=== PATIENT | female | born 1950 | race Caucasian/White ===

== ENCOUNTER → 2017-08-02 | Outpatient (CLI) | payer OTHER ==
[~2017-08-02] MED LIST: ASPI81TA28 PO; CALCTAB7 PO; CHOL100010 PO; CRG40 PO; OMEP10CA2 PO; SIMV20TA2 PO; SNM/25100 PO
--- NOTE | 2017-08-03 07:53 | MAMMOGRAPHY REPORT ---
BILATERAL DIGITAL SCREENING MAMMOGRAM WITH CAD: 08/02/2017 CLINICAL HISTORY: Routine screening. Patient has no complaints. TECHNIQUE: Bilateral CC and MLO views were obtained. Current study was also evaluated with a Compute r Aided Detection (CAD) system. COMPARISON: Comparison is made to exams dated: 07/29/2016 mammogram, 07/08/2015 mammogram, 4 mammogram, 07/04/2013 mammogram, 06/28/2012 mammogram, and 06/05/2011 mammogram - [facility]. BREAST COMPOSITION: There are scattered areas of fibroglandular density in both breasts. FINDINGS: There are numerous benign rim calcifications scattered in both breasts. However, there is a possible cluster of faint punctate microcalcifications in the posterior retroareolar right breast f or which additional spot magnification views are recommended. A 4 mm low-density circumscribed mass in the lower inner left breast appears stable on prior mammogra ms dating back to at least 05/18/2008, therefore likely benign. No other suspicious mass, architectu ral distortion or cluster of microcalcifications is seen. IMPRESSION: ACR BI-RADS CATEGORY 0: INCOMPLETE EVALUATION: NEED ADDITIONAL IMAGING EVALUATION The possible cluster of faint punctate microcalcifications in the right posterior breast needs additi onal evaluation. The patient will be called to schedule an appointment. Approximately 10% of breast cancers are not detected with mammography. A negative mammographic report should not delay biopsy if a clinically suggestive mass is present. Lalitha Hood M.D. ay/:08/02/2017 15:51:10 Marketing Support Coordinator: Natasha Hobbs RT(R)(M), [facility] letter sent: Addl Imaging 0 BI-RADS Code: ACR BI-RADS Category 0: Incomplete Evaluation: Need Additional Imaging Evaluation
== END | disposition home or self-care (01) ==
LOC: C.MAMM 11:08
PROVIDERS: ATTEND Physician Assistant
DX: Z12.31 Encounter for screening mammogram for malignant neoplasm of breast (principal); R92.8 Other abnormal and inconclusive findings on diagnostic imaging of breast

== ENCOUNTER → 2017-08-05 | Outpatient (CLI) | payer OTHER ==
--- NOTE | 2017-08-05 14:35 | MAMMOGRAPHY REPORT ---
UNILATERAL RIGHT DIGITAL DIAGNOSTIC MAMMOGRAM: 08/05/2017 CLINICAL HISTORY: Callback from screening mammogram for right breast calcifications. TECHNIQUE: Spot magnification right CC and ML views were obtained. COMPARISON: Comparison is made to exams dated: 08/02/2017 mammogram, 07/29/2016 mammogram, 5 mammogram, 07/05/2014 mammogram, 06/28/2012 mammogram, and 06/05/2011 mammogram - [facility]. BREAST COMPOSITION: There are scattered areas of fibroglandular density in the right breast. FINDINGS: Spot magnification views of the right breast demonstrate a small 3 mm cluster of faint punc dunaway calcifications in the right slightly lateral breast at approximately 9:00 posteriorly. When com pared to prior exams, the calcifications are likely not significantly changed compared to the 2009 an d 2007 exams, although there are technical differences which make it difficult to make an accurate co mparison. The calcifications are probably benign given the probable long-term stability. Recommend follow-up in 6 months to ensure stability. Other scattered benign rim calcified oil cysts are noted on the spot magnification views. IMPRESSION: ACR-BI-RADS CATEGORY 3: PROBABLY BENIGN Small 3 mm cluster of faint punctate calcifications in the right 9:00 breast is likely stable dating back to the 2007 exam and is therefore probably benign. Recommend follow-up diagnostic mammograms of the right breast in 6 months to ensure stability on spot magnification views. The patient has been verbally notified of the results. Approximately 10% of breast cancers are not detected with mammography. A negative mammographic report should not delay biopsy if a clinically suggestive mass is present. Tamiko Rain M.D. /:08/05/2017 09:35:43 Client Services Vice President: Wilma Dunlap, [facility] letter sent: Follow Up Recommended 3 BI-RADS Code: ACR-BI-RADS Category 3: Probably Benign
== END | disposition home or self-care (01) ==
LOC: C.MAMM 09:06
PROVIDERS: ATTEND Physician Assistant
DX: R92.1 Mammographic calcification found on diagnostic imaging of breast (principal)

== ENCOUNTER 2025-07-23 10:22 | Observation (INO) ==
--- NOTE | 2025-07-23 10:48 | Emergency Department Note ---
Impression & Plan Stroke-like symptom, Tobacco dependence, Encounter for smoking cessation counseling, Hypokalemia, Hypoglycemia ED Provider Note NAME: SANTI PARRA AGE: 74 SEX: F : 1950 ARRIVES VIA: Walk-In INFORMANT: Patient, ED PROVIDER(S): Panchito Huizar MD CHIEF COMPLAINT: Weakness, numbness MEDICAL DECISION MAKING: Patient presents with above which sounds like stuttering stroke or TIA related symptoms. IV was established and blood work is obtained along CT head CT angiography head and neck. Currently asymptomatic with an NIH of 0. Patient did take a baby aspirin as well as her statin medication this morning. Patient's blood work with a normal white count hemoglobin and platelet count. The patient's kidney function unremarkable mild hypokalemia noted at 2.8. Sugar 65. I did ask nursing to give the patient some juice. Urinalysis shows blood but no signs of infection. Patient CT head and CT angiography of the head and neck show some high-grade stenosis of the left vertebral artery as well as stenosis of the proximal right ICA. I did inform the patient of the findings. I did speak with Dr. Barrientos with neurology through [facility] who recommended a Plavix load of 300 mg echo lipid panel MRI brain and to increase her rosuvastatin to 40 mg. I did speak with Dr. Quinn and the patient was admitted to the medicine service. I counseled patient on smoking cessation for 3 minutes. Treatment options discussed and resources provided. Patient was receptive. Discussion w/ other healthcare providers: Dr. Floyd Salas neurology Dr. Quinn inpatient medicine service Prior /Outside records reviewed: None Differential diagnosis: TIA, stroke, infection, dehydration, metabolic abnormality, hypo/hyperglycemia, electrolyte imbalance, anemia, UTI, pneumonia, thyroid dysfunction among others were considered. Diagnostics, as interpreted by me: ECG: Normal sinus rhythm, rate of 61, normal intervals, normal axis no ST elevations no obvious STEMI. Cardiac monitoring: An order was placed for continuous cardiac monitoring. The monitor shows a rate of 62 with sinus rhythm. Patient was placed on pulse oximetry Medical decision rules: None Imaging studies: I informally interpreted the patient's CT head does not show obvious ICH with formal report to follow. HPI: Patient presents due to concern for numbness which has progressed to now include right arm and right leg weakness. This happened most recent this morning and occurred for about 5 minutes in duration. The patient states that she was seen as an outpatient that this began back in February after an increase in her blood pressure medication and was not sure as well not this was attributed to that. She states that that initially just involve facial numbness on the right side. She states that recently the last couple of weeks she has noticed the weakness in the arm and the leg. Patient does take a baby aspirin and statin medication. She denies any prior history of stroke or mini stroke. She is a smoker. She is accompanied by her sister. PAST MEDICAL HISTORY: See Below PAST SURGICAL HISTORY: See Below SOCIAL HISTORY: See Below HOME MEDICATIONS: See Below ALLERGIES: See Below VITALS: See Below PHYSICAL EXAMINATION: GENERAL: NAD, non-toxic. Wearing glasses. EYE EXAM: Normal conjunctiva. PERRL, no anisocoria and EOM's grossly intact w/o pain. OROPHARYNX: Moist mucus membranes, grossly normal dentition. NECK: Trachea midline, no stridor. LUNGS: Clear to auscultation. Normal chest wall mechanics. HEART: NSR, no MRG. ABDOMEN: Abdomen soft, non-tender, no masses, no rebound or guarding. BACK: No CVA TTP. SKIN: No rashes and no bruising. UPPER EXTREMITIES: Upper extremities are grossly normal. LOWER EXTREMITIES: Grossly normal, no edema. NEURO EXAM: Awake and alert, follows commands, no obvious facial asymmetry, normal speech, moves all 4 extremities. Good [id number], no drift and no sensory deficits. 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 History of orthopedic surgery GERD (gastroesophageal reflux disease) Hyperlipidemia Restless leg syndrome Social History Smoking Status: Current every day smoker Tobacco Type: Cigarettes Preferred Language: Tunisian marital status: current occupational status: retired Feels Safe at Home: Yes Allergies Allergies Allergy/AdvReac Type Severity Reaction Status Date / Time No Known Allergies Allergy Mild Verified 07/23/25 13:55 Home Meds Home Medications Medication Instructions Recorded Confirmed aspirin 81 mg tablet,delayed 81 mg PO DAILY 03/09/20 07/23/25 release (Aspir-) calcium 600 mg (as carbonate)-vit 1 tab PO QAM 03/09/20 07/23/25 D3 20 mcg (800 unit) chewable tablet (Caltrate plus D) carbidopa 25 mg-levodopa 100 mg 1 tab PO HS 03/09/20 07/23/25 tablet hydrochlorothiazide 12.5 mg tablet 0 mg PO QAM 03/09/20 07/23/25 nadolol 40 mg tablet 40 mg PO HS 03/09/20 07/23/25 omeprazole 20 mg capsule,delayed 20 mg PO QAM 03/09/20 07/23/25 release valsartan 80 mg tablet 0 mg PO QAM 03/09/20 07/23/25 vitamin E 268 mg (400 unit) capsule 400 unit PO QAM 03/09/20 07/23/25 acetaminophen 500 mg tablet 500 mg PO Q6H PRN Pain 07/23/25 07/23/25 loratadine 10 mg tablet 10 mg PO DAILY PRN Allergy Symptoms 07/23/25 07/23/25 rosuvastatin 40 mg tablet 40 mg PO QPM 07/23/25 07/23/25 valsartan 160 0 tab PO DAILY 07/23/25 07/23/25 mg-hydrochlorothiazide 12.5 mg tablet Results & Data (ED) Vital Signs Vital Signs - 24 hr 07/23/25 10:24 07/23/25 10:42 07/23/25 10:43 Temperature 36.2 C L Temperature Source Temporal Artery Scan Pulse Rate 66 55 L Pulse Rate [Apical] Pulse Rate from SpO2 Sensor Respiratory Rate 14 21 Respiratory Effort / Characteristics Respiratory Depth Respiratory Pattern Blood Pressure 214/75 H 194/84 H 194/84 H Blood Pressure [Left Arm] Blood Pressure Mean 121 120 135 Blood Pressure Mean [Left Arm] Blood Pressure Position [Left Arm] Pulse Oximetry 96 Oxygen Delivery Method Room Air Sepsis New/Unexplained Change in Mental Status No Sepsis Action Taken by Nursing No Action Required 07/23/25 11:00 07/23/25 11:23 07/23/25 11:30 Temperature Temperature Source Pulse Rate 64 55 L 51 L Pulse Rate [Apical] Pulse Rate from SpO2 Sensor 63 52 L Respiratory Rate 13 15 Respiratory Effort / Characteristics Respiratory Depth Respiratory Pattern Blood Pressure 163/71 H 176/77 H Blood Pressure [Left Arm] Blood Pressure Mean 101 110 Blood Pressure Mean [Left Arm] Blood Pressure Position [Left Arm] Pulse Oximetry 98 100 Oxygen Delivery Method Sepsis New/Unexplained Change in Mental Status Sepsis Action Taken by Nursing 07/23/25 12:06 07/23/25 12:36 07/23/25 13:00 Temperature Temperature Source Pulse Rate 49 L 53 L 46 L Pulse Rate [Apical] Pulse Rate from SpO2 Sensor 52 L 47 L Respiratory Rate 14 20 14 Respiratory Effort / Characteristics Respiratory Depth Respiratory Pattern Blood Pressure 184/54 H 179/67 H Blood Pressure [Left Arm] Blood Pressure Mean 97 104 Blood Pressure Mean [Left Arm] Blood Pressure Position [Left Arm] Pulse Oximetry 96 99 Oxygen Delivery Method Sepsis New/Unexplained Change in Mental Status Sepsis Action Taken by Nursing 07/23/25 13:30 07/23/25 14:00 07/23/25 14:30 Temperature Temperature Source Pulse Rate 53 L 53 L 50 L Pulse Rate [Apical] Pulse Rate from SpO2 Sensor 53 L 53 L 51 L Respiratory Rate 20 19 18 Respiratory Effort / Characteristics Respiratory Depth Respiratory Pattern Blood Pressure 181/63 H 193/70 H 160/85 H Blood Pressure [Left Arm] Blood Pressure Mean 102 111 110 Blood Pressure Mean [Left Arm] Blood Pressure Position [Left Arm] Pulse Oximetry 97 98 98 Oxygen Delivery Method Sepsis New/Unexplained Change in Mental Status Sepsis Action Taken by Nursing 07/23/25 15:00 07/23/25 16:21 07/23/25 17:03 Temperature 36.7 C Temperature Source Oral Pulse Rate Pulse Rate [Apical] 54 L 63 55 L Pulse Rate from SpO2 Sensor Respiratory Rate 20 12 16 Respiratory Effort / Characteristics Non-Labored Spontaneous Non-Labored Non-Labored Spontaneous Respiratory Depth Normal Normal Normal Respiratory Pattern Regular Regular Regular Blood Pressure Blood Pressure [Left Arm] 189/76 H 189/82 H 188/72 H Blood Pressure Mean Blood Pressure Mean [Left Arm] 113 117 110 Blood Pressure Position [Left Arm] Semi-fowlers Semi-fowlers Semi-fowlers Pulse Oximetry 98 97 97 Oxygen Delivery Method Room Air Room Air Room Air Sepsis New/Unexplained Change in Mental Status Sepsis Action Taken by Nursing 07/23/25 17:50 Temperature Temperature Source Pulse Rate Pulse Rate [Apical] 71 Pulse Rate from SpO2 Sensor Respiratory Rate 19 Respiratory Effort / Characteristics Respiratory Depth Respiratory Pattern Blood Pressure Blood Pressure [Left Arm] 188/72 H Blood Pressure Mean Blood Pressure Mean [Left Arm] 110 Blood Pressure Position [Left Arm] Pulse Oximetry 97 Oxygen Delivery Method Sepsis New/Unexplained Change in Mental Status Sepsis Action Taken by Custodial Medications Current Medication List: was personally reviewed by me Laboratory Data Attestation: I reviewed the patient's lab results. 07/23/25 10:49 07/23/25 10:49 Lab Results 07/23/25 07/23/25 07/23/25 Range/Units 10:49 12:05 12:12 WBC 9.31 (4.8-10.8) K/ul RBC 4.78 (4.20-5.40) M/uL Hgb 15.2 (12.0-16.0) g/dL Hct 45.4 (37.0-47.0) % MCV 95.0 (80.0-100.0) fL MCH 31.8 (25.0-34.0) pg MCHC 33.5 (32.0-36.0) g/dL RDW Std Deviation 50.0 H (36.4-46.3) fL RDW Coeff of Fermin 14.2 (11.5-14.5) % Plt Count 198 (130-400) K/uL MPV 12.1 (9.4-12.4) fL Immature Gran % (Auto) 0.3 % Neut % (Auto) 61.1 % Lymph % (Auto) 29.6 % Webster % (Auto) 7.6 % Eos % (Auto) 1.1 % Baso % (Auto) 0.3 % Neut # (Auto) 5.68 (1.40-6.50) K/uL Lymph # (Auto) 2.76 (1.20-3.40) K/uL Webster # (Auto) 0.71 H (0.11-0.59) K/uL Eos # (Auto) 0.10 (0.00-0.50) K/uL Baso # (Auto) 0.03 (0.00-0.20) K/uL Immature Gran # (Auto) 0.03 (0.01-0.20) K/uL PT 11.4 (9.0-12.0) Seconds INR 1.1 (0.9-1.1) APTT 23 (21-31) Seconds PTT Ratio 0.8 Sodium 140 (136-145) mmol/L Potassium 2.8 L (3.5-5.1) mmol/L Chloride 100 (98-107) mmol/L Carbon Dioxide 33 H (21-32) mmol/L Anion Gap 7 (3-11) BUN 21 (6-23) mg/dl Creatinine 0.64 (0.6-1.2) mg/dl Est Cr Clr Drug Dosing 71.1 ml/min eGFR 92.10 BUN/Creatinine Ratio 32.8 H (10-20) Glucose 65 L (70-99(Fasting)) mg/dl POC Glucose 67 L* (70-99) mg/dl Calcium 10.2 (8.6-10.3) mg/dl Magnesium 1.9 (1.7-2.4) mg/dl Total Bilirubin 1.5 H (0.2-1.0) mg/dl AST 24 (13-39) U/L ALT 24 (7-52) U/L Alkaline Phosphatase 63 (34-104) U/L Troponin I High Sens 6.9 (0-14) pg/ml Total Protein 7.8 (6.0-8.3) gm/dl Albumin 4.2 (3.4-5.0) gm/dl Globulin 3.6 (2.5-4.0) gm/dl Albumin/Globulin Ratio 1.2 (0.9-2) Urine Color Yellow Urine Appearance Clear (Clear) Urine pH 6.5 (4.5-7.5) Ur Specific [place] 1.010 (1.000-1.030) Urine Protein 1+ H (Negative) Urine Glucose (UA) Negative (Negative) Urine Ketones Negative (Negative) Urine Blood Trace H (Negative) Urine Nitrite Negative (Negative) Urine Bilirubin Negative (Negative) Urine Urobilinogen Negative (Negative) Ur Leukocyte Esterase Negative (Negative) Urine WBC (Auto) 0-5 (0-5) /hpf Urine RBC (Auto) 0-2 (0-2) /hpf U Hyaline Cast (Auto) 0-2 (0-2) /lpf U Epithel Cells (Auto) 0-2 (0-2) /hpf Urine Bacteria (Auto) None Seen (None Seen) Urine Comment 07/23/25 Range/Units 13:56 WBC (4.8-10.8) K/ul RBC (4.20-5.40) M/uL Hgb (12.0-16.0) g/dL Hct (37.0-47.0) % MCV (80.0-100.0) fL MCH (25.0-34.0) pg MCHC (32.0-36.0) g/dL RDW Std Deviation (36.4-46.3) fL RDW Coeff of Fermin (11.5-14.5) % Plt Count (130-400) K/uL MPV (9.4-12.4) fL Immature Gran % (Auto) % Neut % (Auto) % Lymph % (Auto) % Webster % (Auto) % Eos % (Auto) % Baso % (Auto) % Neut # (Auto) (1.40-6.50) K/uL Lymph # (Auto) (1.20-3.40) K/uL Webster # (Auto) (0.11-0.59) K/uL Eos # (Auto) (0.00-0.50) K/uL Baso # (Auto) (0.00-0.20) K/uL Immature Gran # (Auto) (0.01-0.20) K/uL PT (9.0-12.0) Seconds INR (0.9-1.1) APTT (21-31) Seconds PTT Ratio Sodium (136-145) mmol/L Potassium (3.5-5.1) mmol/L Chloride (98-107) mmol/L Carbon Dioxide (21-32) mmol/L Anion Gap (3-11) BUN (6-23) mg/dl Creatinine (0.6-1.2) mg/dl Est Cr Clr Drug Dosing ml/min eGFR BUN/Creatinine Ratio (10-20) Glucose (70-99(Fasting)) mg/dl POC Glucose 84 (70-99) mg/dl Calcium (8.6-10.3) mg/dl Magnesium (1.7-2.4) mg/dl Total Bilirubin (0.2-1.0) mg/dl AST (13-39) U/L ALT (7-52) U/L Alkaline Phosphatase (34-104) U/L Troponin I High Sens (0-14) pg/ml Total Protein (6.0-8.3) gm/dl Albumin (3.4-5.0) gm/dl Globulin (2.5-4.0) gm/dl Albumin/Globulin Ratio (0.9-2) Urine Color Urine Appearance (Clear) Urine pH (4.5-7.5) Ur Specific [place] (1.000-1.030) Urine Protein (Negative) Urine Glucose (UA) (Negative) Urine Ketones (Negative) Urine Blood (Negative) Urine Nitrite (Negative) Urine Bilirubin (Negative) Urine Urobilinogen (Negative) Ur Leukocyte Esterase (Negative) Urine WBC (Auto) (0-5) /hpf Urine RBC (Auto) (0-2) /hpf U Hyaline Cast (Auto) (0-2) /lpf U Epithel Cells (Auto) (0-2) /hpf Urine Bacteria (Auto) (None Seen) Urine Comment Administered Medications Discontinued Medications Clopidogrel Bisulfate (Clopidogrel Bisulfate 300 Mg Tab) 300 mg PO NOW STA Stop: 07/23/25 14:43 Last Admin: 07/23/25 15:10 Dose: 300 mg Documented By: PAULA Ioversol (Optiray 320 125ml) 119 ml IV ONCE ONE Stop: 07/23/25 12:36 Last Admin: 07/23/25 12:35 Dose: 119 ml Documented By: GREGORIA Imaging Data Radiologist's Impression: Head CT 07/23/25 11:12 CT SCAN OF THE BRAIN WITHOUT IV CONTRAST CLINICAL HISTORY: Neurological deficit. Stroke like symptoms. COMPARISON STUDY: No priors TECHNIQUE: Unenhanced CT scan of the brain is performed from the vertex to the skull base. Images are reviewed in the axial, sagittal, coronal planes. A dose lowering technique was utilized adhering to the principles of ALARA. CT DOSE: 1046.13 mGy.cm FINDINGS: Brain parenchyma: There is age-related involutional change noting moderate to advanced subcortical and periventricular microangiopathic disease. There is no hemorrhage, mass effect, or evidence of acute territorial ischemia by CT criteria. There is a small chronic lacunar infarct in the right cerebellar hemisphere. Conley-white matter differentiation is preserved. No extra-axial fluid collection is seen. Ventricles, sulci, cisterns: Prominent secondary to involutional change. Intracranial vasculature: There is atherosclerotic calcification of the cavernous carotid and vertebral arteries. Calvarium: Unremarkable. Sinuses and mastoids: There is mild mucosal thickening within left sphenoid sinus. The visualized paranasal sinuses are otherwise clear. The mastoid air cells are well pneumatized. Cerumen is noted in the external auditory canals. Orbits: The bony orbits are grossly intact. There are bilateral ocular lens implants. IMPRESSION: There is no hemorrhage, mass effect, or evidence of acute territorial ischemia by CT criteria. ACT 112: Negative or not required by law. Electronically signed by: Larry Michaud M.D. 07/23/2025 12:39 PM Head CTA 07/23/25 11:12 CT ANGIOGRAM OF THE BRAIN CLINICAL HISTORY: Neurological deficit. Stroke like symptoms. COMPARISON STUDY: Unenhanced CT of the brain performed concurrently on 07/23/2025. TECHNIQUE: Following the IV administration of 119 cc of Optiray 320, CT angiogram of the brain was performed from the skull base to the vertex. Images are reviewed in the axial, sagittal, and coronal planes. 3-D MIPS images are created and assessed. IV contrast was administered without complication. A dose lowering technique was utilized adhering to the principles of ALARA. FINDINGS: Brain parenchyma: There is age related involutional change noting moderate to advanced subcortical and periventricular microcatheter pathic disease. A chronic infarct is noted in the right cerebellar hemisphere. There is no evidence of hemorrhage or mass effect noting angiographic phase technique. There is no evidence of enhancing mass lesion on the angiogram phase images. No extra-axial fluid collection is seen. Conley-white matter differentiation is preserved. Ventricles, sulci, and cisterns: Prominent secondary to involutional change. CT angiogram of the brain: There is atherosclerotic calcification of the cavernous carotid and vertebral arteries. The enterprise of Mckeon is developmentally complete. The internal carotid arteries at the skull base are patent, as are the anterior and middle cerebral arteries. The vertebrobasilar system and posterior cerebral arteries are patent. The left vertebral artery is dominant. The right vertebral artery is diminutive and terminates as the PICA. There is no aneurysm, high-grade stenosis, or focal vessel cutoff identified throughout the intracranial circulation. Dural sinuses: Clear as visualized. Orbits: The bony orbits are intact. The orbital contents are normal as visualized noting bilateral ocular lens implants. Sinuses and mastoids: There is trace mucosal thickening in the left maxillary antrum. Mild mucosal thickening is seen in the left sphenoid sinus. The mastoid air cells are well pneumatized. Cerumen is noted in the external auditory canals. Calvarium: Unremarkable. IMPRESSION: 1. There is no evidence of hemorrhage or mass effect noting angiographic phase technique. 2. Unremarkable CT angiogram of the brain. ACT 112: Negative or not required by law. Electronically signed by: Larry Michaud M.D. 07/23/2025 12:56 PM Neck CTA 07/23/25 11:12 CT angio neck with con CLINICAL HISTORY: 74 years-old Female with neuro deficit, acute stroke suspected. Acute stroke like symptoms COMPARISON STUDY: Head CT and CTA head of same day TECHNIQUE: Following the IV administration of 119 mL of Optiray, CT angiogram of the neck was performed from the aortic arch to the skull base. Images are reviewed in the axial, sagittal, and coronal planes. 3-D MIPS images are created and assessed. IV contrast was administered without complication. All measurements were calculated based on NASCET criteria. A dose lowering technique was utilized adhering to the principles of ALARA. FINDINGS: Prominent atherosclerosis of the thoracic aortic arch. Patency of the innominate and imaged subclavian arteries. Prominent atherosclerosis of the carotid bulbs and proximal cervical segments of the internal carotid arteries causing approximately 50% stenosis of the left ICA and 60% stenosis of the proximal right ICA. High-grade stenosis at the origin of the dominant left vertebral artery. 50% stenosis of the mid left vertebral artery secondary to atherosclerosis. Developmentally diminutive right vertebral artery appears patent. Mild to moderate stenoses of the distal right PICA. Pulmonary emphysema with nodular foci at the lungs. A subsolid 2.2 cm nodule of the right upper lobe demonstrates a 4 mm solid component. Prominent vascular lesions of the right lung apex measuring up to 9 mm. Linear subpleural nodule of the left lung apex, 1.2 cm. Multilevel degenerative changes of the spine. Multinodular thyroid with subcentimeter nodules. IMPRESSION: 1. Prominent atherosclerosis of the carotid bulbs with 60% stenosis of the proximal cervical segment right ICA. 2. 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 3. Pulmonary emphysema with upper lobe pulmonary nodules including a subsolid 2.2 cm nodule of the right upper lobe. Follow-up guidelines are listed below. Please refer to below summary of Fleischner criteria recommendations for follow- up of incidental CT nodules (Paola Wheat, Guidelines for management of small pulmonary nodules detected on CT scans: A statement from the Fleischner Society, Radiology 237: [phone].) SOLID NODULES Multiple nodules size: <6 mm * Low risk patients: no routine follow-up * high risk patients: optional CT at 12 months Multiple nodules size: 6-8 mm * Low risk patients: follow-up at 3-6 months, then consider further follow-up at 18-24 months * high risk patients: follow-up at 3-6 months, then at 18-24 months if no change Multiple nodules size: >8 mm * Low risk patients: follow-up at 3-6 months, then consider further follow-up at 18-24 months * high risk patients: follow-up at 3-6 months, then at 18-24 months if no change Note: newly detected indeterminate nodule in persons 35 years of age or older. * Low risk patients: minimal or absent history of smoking and/or other known risk factors * high risk patients: history of smoking or of other known risk factors (e.g. first degree relative with lung cancer, or exposure to asbestos, radon, uranium) * if a nodule up to 8 mm is partly solid or is ground glass further follow-up is required after 24 months to exclude possible slow growing adenocarcinoma (ARNIE) SUBSOLID NODULES Solitary pure ground-glass nodule * nodule size <6 mm - no CT follow-up required * nodule size >=6 mm - follow-up CT at 6-12 months, then every 2 years until 5 years Solitary part-solid nodule * nodule size <6 mm - no CT follow-up required * nodule size >=6 mm - follow-up CT at 3-6 months. If unchanged, and solid component remains <6 mm, then annual follow-up for 5 years Multiple subsolid nodules * nodule size <6 mm - follow-up CT at 3-6 months, consider further follow-up at 2 and 4 years if stable * nodule size >=6 mm - follow-up CT at 3-6 months, subsequent management based on the most suspicious nodule(s) The above report was generated using voice recognition software. It may contain grammatical, syntax or spelling errors. ACT 112: Negative or not required by law. The above report was generated using voice recognition software. It may contain grammatical, syntax or spelling errors. Electronically signed by: Fab Burns M.D. 07/23/2025 1:05 PM Brain MRI 07/23/25 14:43 MR brain wo con HISTORY: 74 years-old Female stroke work up acute stroke like symptoms COMPARISON: CTA head same day TECHNIQUE: Multiplanar multisequence MRI of the brain was obtained without IV contrast FINDINGS: No restricted diffusion to suggest an acute or subacute infarct. There are chronic right cerebellar lacunar infarcts. Involutional changes with moderate T2/FLAIR hyperintense foci throughout the white matter. No acute intracranial hemorrhage, midline shift, abnormal extra-axial collection, hydrocephalus or intra-axial mass. Degenerative changes of the imaged cervical spine. Cerebral venous sinuses and major arterial flow voids appear patent. Skull, orbits and soft tissues are unremarkable. The mastoid air cells are clear. Mild mucosal thickening of the left sphenoid sinus. IMPRESSION: 1. No acute intracranial abnormality. No acute or subacute infarct. 2. Involutional changes with chronic microvascular ischemic disease. 3. Chronic right cerebellar lacunar infarcts. ACT 112: Negative or not required by law. The above report was generated using voice recognition software. It may contain grammatical, syntax or spelling errors. Electronically signed by: Fab Burns M.D. 07/23/2025 4:00 PM Discharge Plan Visit Data Chief Complaint: Dizziness Stated Complaint: DIZZY, NUMB, FACE AND MOUTH ED Provider: Panchito Huizar Discharge Problem: Stroke-like symptom, Tobacco dependence, Encounter for smoking cessation counseling, Hypokalemia, Hypoglycemia Patient Disposition: Admitted As Inpatient Condition: Good Forms Stand Alone Forms: [facility] Prescriptions Prescriptions: No Action valsartan 80 mg tablet 0 mg PO QAM Patient Comments: 07/23- per patient, she isn't really sure which ones she takes. She knows she definitely takes the combination khris/hctz and thinks she also takes the valsartan 80mg by itself as well which she thinks is too much and is causing her issues. aspirin [Aspir-81] 81 mg Tablet,Delayed Release (Dr/Ec) 81 mg PO DAILY omeprazole 20 mg capsule,delayed release(DR/EC) 20 mg PO QAM nadolol 40 mg tablet 40 mg PO HS carbidopa-levodopa 25-100 mg tablet 1 tab PO HS vitamin E 400 unit Capsule 400 unit PO QAM hydrochlorothiazide 12.5 mg tablet 0 mg PO QAM Patient Comments: 07/23- per patient, she isn't really sure which ones she takes. She knows she definitely takes the combination khris/hctz and thinks she also takes the valsartan 80mg by itself as well which she thinks is too much and is causing her issues. Caltrate 600 plus D 600 mg (1,500 mg)-800 unit Tablet,Chewable 1 tab PO QAM valsartan-hydrochlorothiazide 160-12.5 mg tablet 0 tab PO DAILY Patient Comments: 07/23- per patient, she isn't really sure which ones she takes. She knows she definitely takes the combination khris/hctz and thinks she also takes the valsartan 80mg by itself as well which she thinks is too much and is causing her issues. rosuvastatin 40 mg tablet 40 mg PO QPM acetaminophen [Tylenol Ex Str Rapid Release] 500 mg Tablet 500 mg PO Q6H PRN (Reason: Pain) loratadine 10 mg Tablet 10 mg PO DAILY PRN (Reason: Allergy Symptoms) Referrals Referrals: Omari Ballard MD [Outside Practitioners] -
[2025-07-23 11:39] LABS: Hematocrit (blood only) 45.4 % (37.0-47.0); Hemoglobin 15.2 g/dL (12.0-16.0); Immature Granulocytes # (auto) 0.03 K/uL (0.01-0.20); Immature Granulocytes % (auto) 0.3 %; Mean Corpuscular Hemoglobin 31.8 pg (25.0-34.0); Mean Corpuscular Volume 95.0 fL (80.0-100.0); Platelet Count 198 K/uL (130-400); RDW Standard Deviation 50.0 fL (36.4-46.3); Red Blood Count 4.78 M/uL (4.20-5.40); White Blood Count 9.31 K/ul (4.8-10.8)
[2025-07-23 12:05] LABS: Alanine Aminotransferase 24.0 U/L (7-52); Albumin Globulin Ratio 1.2 (0.9-2); Albumin Level 4.2 gm/dl (3.4-5.0); Alkaline Phosphatase 63.0 U/L (34-104); Anion Gap 7.0 (3-11); Bilirubin,Total 1.5 mg/dl (0.2-1.0); Blood Urea Nitrogen 21.0 mg/dl (6-23); Calcium 10.2 mg/dl (8.6-10.3); Carbon Dioxide 33.0 mmol/L (21-32); Chloride 100.0 mmol/L (98-107); Creatinine Clr Calc Pharmacy 71.1 ml/min; Globulin 3.6 gm/dl (2.5-4.0); Glucose 65.0 mg/dl (70-99(Fasting)); Magnesium 1.9 mg/dl (1.7-2.4); Potassium 2.8 mmol/L (3.5-5.1); Sodium 140.0 mmol/L (136-145); Total Protein 7.8 gm/dl (6.0-8.3)
[2025-07-23 12:12] LABS: INR 1.1 (0.9-1.1); Partial Thromboplastin Time 23 Seconds (21-31); Prothrombin Time 11.4 Seconds (9.0-12.0)
[2025-07-23] MEDS: OPTIRAY 320 125ml IV ONE (12:35)
--- NOTE | 2025-07-23 12:41 | CT Scan Report ---
CT SCAN OF THE BRAIN WITHOUT IV CONTRAST CLINICAL HISTORY: Neurological deficit. Stroke like symptoms. COMPARISON STUDY: No priors TECHNIQUE: Unenhanced CT scan of the brain is performed from the vertex to the skull base. Images are reviewed in the axial, sagittal, coronal planes. A dose lowering technique was utilized adhering to the principles of ALARA. CT DOSE: 1046.13 mGy.cm FINDINGS: Brain parenchyma: There is age-related involutional change noting moderate to advanced subcortical an d periventricular microangiopathic disease. There is no hemorrhage, mass effect, or evidence of acute territorial ischemia by CT criteria. There is a small chronic lacunar infarct in the right cerebella r hemisphere. Conley-white matter differentiation is preserved. No extra-axial fluid collection is seen . Ventricles, sulci, cisterns: Prominent secondary to involutional change. Intracranial vasculature: There is atherosclerotic calcification of the cavernous carotid and vertebr al arteries. Calvarium: Unremarkable. Sinuses and mastoids: There is mild mucosal thickening within left sphenoid sinus. The visualized par anasal sinuses are otherwise clear. The mastoid air cells are well pneumatized. Cerumen is noted in t he external auditory canals. Orbits: The bony orbits are grossly intact. There are bilateral ocular lens implants. IMPRESSION: There is no hemorrhage, mass effect, or evidence of acute territorial ischemia by CT jacquelyn davis. ACT 112: Negative or not required by law. Electronically signed by: Larry Michaud M.D. 07/23/2025 12:39 PM
[2025-07-23 12:42] LABS: Appearance Urine Clear (Clear); Bacteria Urine Automated None Seen (None Seen); Cast Urine Automated 0-2 /lpf (0-2); Epithelial Cell Urine Auto 0-2 /hpf (0-2); Glucose Urine UA Negative (Negative); RBC Urine Automated 0-2 /hpf (0-2); WBC Urine Automated 0-5 /hpf (0-5)
--- NOTE | 2025-07-23 12:59 | CT Scan Report ---
CT ANGIOGRAM OF THE BRAIN CLINICAL HISTORY: Neurological deficit. Stroke like symptoms. COMPARISON STUDY: Unenhanced CT of the brain performed concurrently on 07/23/2025. TECHNIQUE: Following the IV administration of 119 cc of Optiray 320, CT angiogram of the brain was pe rformed from the skull base to the vertex. Images are reviewed in the axial, sagittal, and coronal pl anes. 3-D MIPS images are created and assessed. IV contrast was administered without complication. A dose lowering technique was utilized adhering to the principles of ALARA. FINDINGS: Brain parenchyma: There is age related involutional change noting moderate to advanced subcortical an d periventricular microcatheter pathic disease. A chronic infarct is noted in the right cerebellar he misphere. There is no evidence of hemorrhage or mass effect noting angiographic phase technique. Ther e is no evidence of enhancing mass lesion on the angiogram phase images. No extra-axial fluid collect ion is seen. Conley-white matter differentiation is preserved. Ventricles, sulci, and cisterns: Prominent secondary to involutional change. CT angiogram of the brain: There is atherosclerotic calcification of the cavernous carotid and verteb ral arteries. The craig of [place]ke[place] is developmentally complete. The internal carotid arteries at the skull base are patent, as are the anterior and middle cerebral arteries. The vertebrobasilar system a nd posterior cerebral arteries are patent. The left vertebral artery is dominant. The right vertebral artery is diminutive and terminates as the PICA. There is no aneurysm, high-grade stenosis, or focal vessel cutoff identified throughout the intracranial circulation. Dural sinuses: Clear as visualized. Orbits: The bony orbits are intact. The orbital contents are normal as visualized noting bilateral oc ular lens implants. Sinuses and mastoids: There is trace mucosal thickening in the left maxillary antrum. Mild mucosal th ickening is seen in the left sphenoid sinus. The mastoid air cells are well pneumatized. Cerumen is n oted in the external auditory canals. Calvarium: Unremarkable. IMPRESSION: 1. There is no evidence of hemorrhage or mass effect noting angiographic phase technique. 2. Unremarkable CT angiogram of the brain. ACT 112: Negative or not required by law. Electronically signed by: Larry Michaud M.D. 07/23/2025 12:56 PM
--- NOTE | 2025-07-23 13:07 | CT Scan Report ---
CT angio neck with con CLINICAL HISTORY: 74 years-old Female with neuro deficit, acute stroke suspected. Acute stroke lik e symptoms COMPARISON STUDY: Head CT and CTA head of same day TECHNIQUE: Following the IV administration of 119 mL of Optiray, CT angiogram of the neck was perform ed from the aortic arch to the skull base. Images are reviewed in the axial, sagittal, and coronal pl anes. 3-D MIPS images are created and assessed. IV contrast was administered without complication. Al l measurements were calculated based on NASCET criteria. A dose lowering technique was utilized adhe ring to the principles of ALARA. FINDINGS: Prominent atherosclerosis of the thoracic aortic arch. Patency of the innominate and imaged subclavia n arteries. Prominent atherosclerosis of the carotid bulbs and proximal cervical segments of the inte rnal carotid arteries causing approximately 50% stenosis of the left ICA and 60% stenosis of the prox imal right ICA. High-grade stenosis at the origin of the dominant left vertebral artery. 50% stenosis of the mid left vertebral artery secondary to atherosclerosis. Developmentally diminutive right vert ebral artery appears patent. Mild to moderate stenoses of the distal right PICA. Pulmonary emphysema with nodular foci at the lungs. A subsolid 2.2 cm nodule of the right upper lobe demonstrates a 4 mm solid component. Prominent vascular lesions of the right lung apex measuring up t o 9 mm. Linear subpleural nodule of the left lung apex, 1.2 cm. Multilevel degenerative changes of th e spine. Multinodular thyroid with subcentimeter nodules. IMPRESSION: 1. Prominent atherosclerosis of the carotid bulbs with 60% stenosis of the proximal cervical segment right ICA. 2. 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 3. Pulmonary emphysema with upper lobe pulmonary nodules including a subsolid 2.2 cm nodule of the ri ght upper lobe. Follow-up guidelines are listed below. Please refer to below summary of Fleischner criteria recommendations for follow-up of incidental CT n odules (Paola Wheat, Guidelines for management of small pulmonary nodules detected on CT scans: A sta tement from the Fleischner Society, Radiology 237: [id number].) SOLID NODULES Multiple nodules size: <6 mm * Low risk patients: no routine follow-up * high risk patients: optional CT at 12 months Multiple nodules size: 6-8 mm * Low risk patients: follow-up at 3-6 months, then consider further follow-up at 18-24 months * high risk patients: follow-up at 3-6 months, then at 18-24 months if no change Multiple nodules size: >8 mm * Low risk patients: follow-up at 3-6 months, then consider further follow-up at 18-24 months * high risk patients: follow-up at 3-6 months, then at 18-24 months if no change Note: newly detected indeterminate nodule in persons 35 years of age or older. * Low risk patients: minimal or absent history of smoking and/or other known risk factors * high risk patients: history of smoking or of other known risk factors (e.g. first degree relative with lung cancer, or exposure to asbestos, radon, uranium) * if a nodule up to 8 mm is partly solid or is ground glass further follow-up is required after 24 m onths to exclude possible slow growing adenocarcinoma (ARNIE) SUBSOLID NODULES Solitary pure ground-glass nodule * nodule size <6 mm - no CT follow-up required * nodule size >=6 mm - follow-up CT at 6-12 months, then every 2 years until 5 years Solitary part-solid nodule * nodule size <6 mm - no CT follow-up required * nodule size >=6 mm - follow-up CT at 3-6 months. If unchanged, and solid component remains <6 mm, then annual follow-up for 5 years Multiple subsolid nodules * nodule size <6 mm - follow-up CT at 3-6 months, consider further follow-up at 2 and 4 years if sta ble * nodule size >=6 mm - follow-up CT at 3-6 months, subsequent management based on the most suspiciou s nodule(s) The above report was generated using voice recognition software. It may contain grammatical, syntax o r spelling errors. ACT 112: Negative or not required by law. The above report was generated using voice recognition software. It may contain grammatical, syntax o r spelling errors. Electronically signed by: Fab Burns M.D. 07/23/2025 1:05 PM
--- NOTE | 2025-07-23 14:58 | History & Physical Report ---
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 Aspirin daily - Neurochecks per stroke protocol - Bedside swallow, however healthy diet - Subcu heparin until she is loaded with Plavix #Hypertensive urgency #Chronically elevated blood pressure #Hypertension -Chronically elevated per patient she states 160 would be a "good number" for her -Resume home antihypertensives -Could not rule out the fact that a watershed episode of hypotension could elicit stroke like symptoms as above making the episodes more episodic -Goal for 25% decrease in blood pressures over the first 24 hours, monitor for recurrence of symptoms #Chronic migraine - She is on prophylactic medication unclear which one that is. She states she still has the aura but has not had any headaches since she started this medication maybe 15 years ago - Complex migraine/ocular migraine certainly part of the differential as above #hyperlipidemia - Continue statin #Parkinsonism Continue current Sinemet dose- #Tobacco dependence - Longstanding, not counseled initially but encouraged strongly to stop #Chronic back pain - Poorly controlled in the outpatient setting. Patient states that it is difficult for her to manage her blood pressure and lieu of her chronic back pain. -Monitor for breakthrough #FEN - Heart healthy diet #CODE STATUS -Full code per her wishes History of Present Illness Chief Complaint: 74 F Hx of tobacco dependence, GERD, HLD, HTN longstanding but contolled classic migraine with aura and several month hx of episodic weakness numbness which has progressed to now include right arm and right leg weakness. Ongoing outpatient workup since february with sporadic instances, she had a more significant ep new clear etiology. Episode this morning and occurred for about 5 minutes in duration. The patient states that she was seen as an outpatient that this began back in February after an increase in her blood pressure medication and was not sure as well not this was attributed to that. She states that that initially just involve facial numbness on the right side. She states that recently the last couple of weeks she has noticed the weakness in the arm and the leg. Patient does take a baby aspirin and statin medication. She denies any prior history of stroke or mini stroke. She is a smoker. She is accompanied by her sister. She was referred for admission for further definitive diagnostic imaging/MRI, telemetry monitoring, completion of stroke workup, PT OT evaluation, and blood pressure management She describes these episodes very clearly starting several months ago with just perioral numbness that over the course of several brief episodes spread to numbness along the side of her tongue. This happened for several weeks. Then she states her vision change where she would get double vision almost as though she was crossing her eyes. They were happening in concert with the tongue numbness. This is when she started with the outpatient workup. She said these episodes have become more frequent where in the beginning they were maybe once or twice per week to now maybe once or twice per day. This morning she had another very similar episode that lasted as long as 5 minutes. She said recently she has also had heaviness and numbness in the right side of her body that she attributes to being part of these episodes. She states these are very different than any prior aura or that she had with her migraines in the past. Denies any headache associated with these. States that her balance is way off and she cannot even walk in a straight line for short distance during these brief episodes. Secondary to progression of why she came into the emergency department. Primary Care Provider: Jaqueline Reardon PA-C Allergies Allergy/AdvReac Type Severity Reaction Status Date / Time No Known Allergies Allergy Mild Verified 07/23/25 13:55 Home Medications Medication Instructions Recorded Confirmed Type aspirin 81 mg tablet,delayed 81 mg PO DAILY 03/09/20 07/23/25 History release (Aspir-) calcium 600 mg (as carbonate)-vit 1 tab PO QAM 03/09/20 07/23/25 History D3 20 mcg (800 unit) chewable tablet (Caltrate plus D) carbidopa 25 mg-levodopa 100 mg 1 tab PO HS 03/09/20 07/23/25 History tablet hydrochlorothiazide 12.5 mg tablet 0 mg PO QAM 03/09/20 07/23/25 History nadolol 40 mg tablet 40 mg PO HS 03/09/20 07/23/25 History omeprazole 20 mg capsule,delayed 20 mg PO QAM 03/09/20 07/23/25 History release valsartan 80 mg tablet 0 mg PO QAM 03/09/20 07/23/25 History vitamin E 268 mg (400 unit) capsule 400 unit PO QAM 03/09/20 07/23/25 History acetaminophen 500 mg tablet 500 mg PO Q6H PRN Pain 07/23/25 07/23/25 History loratadine 10 mg tablet 10 mg PO DAILY PRN Allergy Symptoms 07/23/25 07/23/25 History rosuvastatin 40 mg tablet 40 mg PO QPM 07/23/25 07/23/25 History valsartan 160 0 tab PO DAILY 07/23/25 07/23/25 History mg-hydrochlorothiazide 12.5 mg tablet 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 History of orthopedic surgery GERD (gastroesophageal reflux disease) Hyperlipidemia Restless leg syndrome Social History Smoking Status: Current every day smoker Tobacco Type: Cigarettes Second Hand Exposure: No; Do You Dip or Chew Tobacco: No; Tobacco Cessation Education Requested by Patient: No Hx Alcohol Use: No Hx Substance Use: No Preferred Language: Argentine Communication Ability: Effective Reliability Technicians Required: No Beliefs That Will Affect Care: None marital status: Current Living Situation: Spouse current occupational status: retired Feels Safe at Home: Yes Safety Concerns: Feels Safe At This Time Assistive Devices: Glasses Review of Systems Review of Systems: Aside from that noted above a full 12 point review of systems was conducted and was negative Physical Exam Physical Exam: GENERAL: NAD, conversational, joking with her sister at bedside at times. EYE EXAM: Normal conjunctiva. PERRL, no anisocoria OROPHARYNX: Moist mucus membranes, grossly normal dentition. LUNGS: Clear to auscultation. Normal chest wall mechanics. HEART: NSR, no MRG. SKIN: No rashes and no bruising. UPPER EXTREMITIES: Upper extremities are grossly normal. LOWER EXTREMITIES: Grossly normal, no edema. NEURO EXAM: No focal deficits, A&Ox3, follows commands, no obvious facial asymmetry, normal speech, moves all 4 extremities. Good [id number], no drift and no sensory deficits. Results & Data Results & Data Vital Signs (Past 12 Hours) Vital Signs Temp Pulse Resp BP Pulse Ox O2 Del Method 07/23/25 13:30 53 L 20 181/63 H 97 07/23/25 13:00 46 L 14 179/67 H 99 07/23/25 12:36 53 L 20 96 07/23/25 12:06 49 L 14 184/54 H 07/23/25 11:30 51 L 15 176/77 H 100 07/23/25 11:23 55 L 07/23/25 11:00 64 13 163/71 H 98 07/23/25 10:43 194/84 H 07/23/25 10:42 55 L 21 194/84 H 07/23/25 10:24 36.2 C L 66 14 214/75 H 96 Room Air Laboratory Results 07/23/25 07/23/25 07/23/25 13:56 12:12 12:05 WBC RBC Hgb Hct MCV MCH MCHC RDW Std Deviation RDW Coeff of Fermin Plt Count MPV Immature Gran % (Auto) Neut % (Auto) Lymph % (Auto) [place] % (Auto) Eos % (Auto) Baso % (Auto) Neut # (Auto) Lymph # (Auto) [place] # (Auto) Eos # (Auto) Baso # (Auto) Immature Gran # (Auto) PT INR APTT PTT Ratio Sodium Potassium Chloride Carbon Dioxide Anion Gap BUN Creatinine Est Cr Clr Drug Dosing eGFR BUN/Creatinine Ratio Glucose POC Glucose 84 67 L* Calcium Magnesium Total Bilirubin AST ALT Alkaline Phosphatase Troponin I High Sens Total Protein Albumin Globulin Albumin/Globulin Ratio Urine Color Yellow Urine Appearance Clear Urine pH 6.5 Ur Specific [place] 1.010 Urine Protein 1+ H Urine Glucose (UA) Negative Urine Ketones Negative Urine Blood Trace H Urine Nitrite Negative Urine Bilirubin Negative Urine Urobilinogen Negative Ur Leukocyte Esterase Negative Urine WBC (Auto) 0-5 Urine RBC (Auto) 0-2 U Hyaline Cast (Auto) 0-2 U Epithel Cells (Auto) 0-2 Urine Bacteria (Auto) None Seen Urine Comment 07/23/25 10:49 WBC 9.31 RBC 4.78 Hgb 15.2 Hct 45.4 MCV 95.0 MCH 31.8 MCHC 33.5 RDW Std Deviation 50.0 H RDW Coeff of Fermin 14.2 Plt Count 198 MPV 12.1 Immature Gran % (Auto) 0.3 Neut % (Auto) 61.1 Lymph % (Auto) 29.6 [place] % (Auto) 7.6 Eos % (Auto) 1.1 Baso % (Auto) 0.3 Neut # (Auto) 5.68 Lymph # (Auto) 2.76 [place] # (Auto) 0.71 H Eos # (Auto) 0.10 Baso # (Auto) 0.03 Immature Gran # (Auto) 0.03 PT 11.4 INR 1.1 APTT 23 PTT Ratio 0.8 Sodium 140 Potassium 2.8 L Chloride 100 Carbon Dioxide 33 H Anion Gap 7 BUN 21 Creatinine 0.64 Est Cr Clr Drug Dosing 71.1 eGFR 92.10 BUN/Creatinine Ratio 32.8 H Glucose 65 L POC Glucose Calcium 10.2 Magnesium 1.9 Total Bilirubin 1.5 H AST 24 ALT 24 Alkaline Phosphatase 63 Troponin I High Sens 6.9 Total Protein 7.8 Albumin 4.2 Globulin 3.6 Albumin/Globulin Ratio 1.2 Urine Color Urine Appearance Urine pH Ur Specific [place] Urine Protein Urine Glucose (UA) Urine Ketones Urine Blood Urine Nitrite Urine Bilirubin Urine Urobilinogen Ur Leukocyte Esterase Urine WBC (Auto) Urine RBC (Auto) U Hyaline Cast (Auto) U Epithel Cells (Auto) Urine Bacteria (Auto) Urine Comment Diagnostic Findings Head CT 07/23/25 11:12 CT SCAN OF THE BRAIN WITHOUT IV CONTRAST CLINICAL HISTORY: Neurological deficit. Stroke like symptoms. COMPARISON STUDY: No priors TECHNIQUE: Unenhanced CT scan of the brain is performed from the vertex to the skull base. Images are reviewed in the axial, sagittal, coronal planes. A dose lowering technique was utilized adhering to the principles of ALARA. CT DOSE: 1046.13 mGy.cm FINDINGS: Brain parenchyma: There is age-related involutional change noting moderate to advanced subcortical and periventricular microangiopathic disease. There is no hemorrhage, mass effect, or evidence of acute territorial ischemia by CT criteria. There is a small chronic lacunar infarct in the right cerebellar hemisphere. Conley-white matter differentiation is preserved. No extra-axial fluid collection is seen. Ventricles, sulci, cisterns: Prominent secondary to involutional change. Intracranial vasculature: There is atherosclerotic calcification of the cavernous carotid and vertebral arteries. Calvarium: Unremarkable. Sinuses and mastoids: There is mild mucosal thickening within left sphenoid sinus. The visualized paranasal sinuses are otherwise clear. The mastoid air cells are well pneumatized. Cerumen is noted in the external auditory canals. Orbits: The bony orbits are grossly intact. There are bilateral ocular lens implants. IMPRESSION: There is no hemorrhage, mass effect, or evidence of acute territorial ischemia by CT criteria. ACT 112: Negative or not required by law. Electronically signed by: Larry Michaud M.D. 07/23/2025 12:39 PM Head CTA 07/23/25 11:12 CT ANGIOGRAM OF THE BRAIN CLINICAL HISTORY: Neurological deficit. Stroke like symptoms. COMPARISON STUDY: Unenhanced CT of the brain performed concurrently on 07/23/2025. TECHNIQUE: Following the IV administration of 119 cc of Optiray 320, CT angiogram of the brain was performed from the skull base to the vertex. Images are reviewed in the axial, sagittal, and coronal planes. 3-D MIPS images are created and assessed. IV contrast was administered without complication. A dose lowering technique was utilized adhering to the principles of ALARA. FINDINGS: Brain parenchyma: There is age related involutional change noting moderate to ad vanced subcortical and periventricular microcatheter pathic disease. A chronic infarct is noted in the right cerebellar hemisphere. There is no evidence of hemorrhage or mass effect noting angiographic phase technique. There is no evidence of enhancing mass lesion on the angiogram phase images. No extra-axial fluid collection is seen. Conley-white matter differentiation is preserved. Ventricles, sulci, and cisterns: Prominent secondary to involutional change. CT angiogram of the brain: There is atherosclerotic calcification of the cavernous carotid and vertebral arteries. The torres martinez of [place] is developmentally complete. The internal carotid arteries at the skull base are patent, as are the anterior and middle cerebral arteries. The vertebrobasilar system and posterior cerebral arteries are patent. The left vertebral artery is dominant. The right vertebral artery is diminutive and terminates as the PICA. There is no aneurysm, high-grade stenosis, or focal vessel cutoff identified th roughout the intracranial circulation. Dural sinuses: Clear as visualized. Orbits: The bony orbits are intact. The orbital contents are normal as visualized noting bilateral ocular lens implants. Sinuses and mastoids: There is trace mucosal thickening in the left maxillary antrum. Mild mucosal thickening is seen in the left sphenoid sinus. The mastoid air cells are well pneumatized. Cerumen is noted in the external auditory canals. Calvarium: Unremarkable. IMPRESSION: 1. There is no evidence of hemorrhage or mass effect noting angiographic phase technique. 2. Unremarkable CT angiogram of the brain. ACT 112: Negative or not required by law. Electronically signed by: Larry Michaud M.D. 07/23/2025 12:56 PM Neck CTA 07/23/25 11:12 CT angio neck with con CLINICAL HISTORY: 74 years-old Female with neuro deficit, acute stroke suspected. Acute stroke like symptoms COMPARISON STUDY: Head CT and CTA head of same day TECHNIQUE: Following the IV administration of 119 mL of Optiray, CT angiogram of the neck was performed from the aortic arch to the skull base. Images are reviewed in the axial, sagittal, and coronal planes. 3-D MIPS images are created and assessed. IV contrast was administered without complication. All measurements were calculated based on NASCET criteria. A dose lowering technique was utilized adhering to the principles of ALARA. FINDINGS: Prominent atherosclerosis of the thoracic aortic arch. Patency of the innominate and imaged subclavian arteries. Prominent atherosclerosis of the carotid bulbs and proximal cervical segments of the internal carotid arteries causing approximately 50% stenosis of the left ICA and 60% stenosis of the proximal right ICA. High-grade stenosis at the origin of the dominant left vertebral artery. 50% stenosis of the mid left vertebral artery secondary to atherosclerosis. Developmentally diminutive right vertebral artery appears patent. Mild to moderate stenoses of the distal right PICA. Pulmonary emphysema with nodular foci at the lungs. A subsolid 2.2 cm nodule of the right upper lobe demonstrates a 4 mm solid component. Prominent vascular lesions of the right lung apex measuring up to 9 mm. Linear subpleural nodule of the left lung apex, 1.2 cm. Multilevel degenerative changes of the spine. Multinodular thyroid with subcentimeter nodules. IMPRESSION: 1. Prominent atherosclerosis of the carotid bulbs with 60% stenosis of the proximal cervical segment right ICA. 2. 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 3. Pulmonary emphysema with upper lobe pulmonary nodules including a subsolid 2.2 cm nodule of the right upper lobe. Follow-up guidelines are listed below. Please refer to below summary of Fleischner criteria recommendations for follow- up of incidental CT nodules (Paola Wheat, Guidelines for management of small pulmonary nodules detected on CT scans: A statement from the Fleischner Society, Radiology 237: [phone].) SOLID NODULES Multiple nodules size: <6 mm * Low risk patients: no routine follow-up * high risk patients: optional CT at 12 months Multiple nodules size: 6-8 mm * Low risk patients: follow-up at 3-6 months, then consider further follow-up at 18-24 months * high risk patients: follow-up at 3-6 months, then at 18-24 months if no change Multiple nodules size: >8 mm * Low risk patients: follow-up at 3-6 months, then consider further follow-up at 18-24 months * high risk patients: follow-up at 3-6 months, then at 18-24 months if no change Note: newly detected indeterminate nodule in persons 35 years of age or older. * Low risk patients: minimal or absent history of smoking and/or other known risk factors * high risk patients: history of smoking or of other known risk factors (e.g. first degree relative with lung cancer, or exposure to asbestos, radon, uranium) * if a nodule up to 8 mm is partly solid or is ground glass further follow-up is required after 24 months to exclude possible slow growing adenocarcinoma (ARNIE) SUBSOLID NODULES Solitary pure ground-glass nodule * nodule size <6 mm - no CT follow-up required * nodule size >=6 mm - follow-up CT at 6-12 months, then every 2 years until 5 years Solitary part-solid nodule * nodule size <6 mm - no CT follow-up required * nodule size >=6 mm - follow-up CT at 3-6 months. If unchanged, and solid component remains <6 mm, then annual follow-up for 5 years Multiple subsolid nodules * nodule size <6 mm - follow-up CT at 3-6 months, consider further follow-up at 2 and 4 years if stable * nodule size >=6 mm - follow-up CT at 3-6 months, subsequent management based on the most suspicious nodule(s) The above report was generated using voice recognition software. It may contain grammatical, syntax or spelling errors. ACT 112: Negative or not required by law. The above report was generated using voice recognition software. It may contain grammatical, syntax or spelling errors. Electronically signed by: Fab Burns M.D. 07/23/2025 1:05 PM Brain MRI 07/23/25 14:43 MR brain wo con HISTORY: 74 years-old Female stroke work up acute stroke like symptoms COMPARISON: CTA head same day TECHNIQUE: Multiplanar multisequence MRI of the brain was obtained without IV contrast FINDINGS: No restricted diffusion to suggest an acute or subacute infarct. There are chronic right cerebellar lacunar infarcts. Involutional changes with moderate T2/FLAIR hyperintense foci throughout the white matter. No acute intracranial hemorrhage, midline shift, abnormal extra-axial collection, hydrocephalus or intra-axial mass. Degenerative changes of the imaged cervical spine. Cerebral venous sinuses and major arterial flow voids appear patent. Skull, orbits and soft tissues are unremarkable. The mastoid air cells are clear. Mild mucosal thickening of the left sphenoid sinus. IMPRESSION: 1. No acute intracranial abnormality. No acute or subacute infarct. 2. Involutional changes with chronic microvascular ischemic disease. 3. Chronic right cerebellar lacunar infarcts. ACT 112: Negative or not required by law. The above report was generated using voice recognition software. It may contain grammatical, syntax or spelling errors. Electronically signed by: Fab Burns M.D. 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
[2025-07-23] MEDS: CLOPIDOGREL BISULFATE 300 MG TAB PO STA (15:10)
--- NOTE | 2025-07-23 16:01 | Magnetic Resonance Report ---
MR brain wo con HISTORY: 74 years-old Female stroke work up acute stroke like symptoms COMPARISON: CTA head same day TECHNIQUE: Multiplanar multisequence MRI of the brain was obtained without IV contrast FINDINGS: No restricted diffusion to suggest an acute or subacute infarct. There are chronic right cerebellar l acunar infarcts. Involutional changes with moderate T2/FLAIR hyperintense foci throughout the white m atter. No acute intracranial hemorrhage, midline shift, abnormal extra-axial collection, hydrocephalu s or intra-axial mass. Degenerative changes of the imaged cervical spine. Cerebral venous sinuses and major arterial flow voids appear patent. Skull, orbits and soft tissues a re unremarkable. The mastoid air cells are clear. Mild mucosal thickening of the left sphenoid sinus. IMPRESSION: 1. No acute intracranial abnormality. No acute or subacute infarct. 2. Involutional changes with chronic microvascular ischemic disease. 3. Chronic right cerebellar lacunar infarcts. ACT 112: Negative or not required by law. The above report was generated using voice recognition software. It may contain grammatical, syntax o r spelling errors. Electronically signed by: Fab Burns M.D. 07/23/2025 4:00 PM
[2025-07-23] MEDS ORDERED: PHARMACIST DISCHARGE MED REC CONSULT PRN (18:30)
[2025-07-23] MEDS ORDERED: ONDANSETRON INJ 2 MG/ML 2 ML VIAL IV PRN (18:30)
[2025-07-23] MEDS ORDERED: ACETAMINOPHEN 325 MG TAB PO PRN (18:30)
[2025-07-23] MEDS: HEPARIN SOD 5,000 UNIT/0.5 ML VIAL SQ SCH (20:36)
[2025-07-23] MEDS: CARBIDOPA/LEVODOPA 25/100MG TAB PO SCH (20:36)
[2025-07-23] MEDS: ROSUVASTATIN CALCIUM 20 MG TAB PO SCH (20:36)
[2025-07-24 07:25] LABS: Hematocrit (blood only) 41.3 % (37.0-47.0); Hemoglobin 14.0 g/dL (12.0-16.0); Immature Granulocytes # (auto) 0.03 K/uL (0.01-0.20); Immature Granulocytes % (auto) 0.4 %; Mean Corpuscular Hemoglobin 31.5 pg (25.0-34.0); Mean Corpuscular Volume 93.0 fL (80.0-100.0); Platelet Count 180 K/uL (130-400); RDW Standard Deviation 47.9 fL (36.4-46.3); Red Blood Count 4.44 M/uL (4.20-5.40); White Blood Count 8.25 K/ul (4.8-10.8)
[2025-07-24 08:11] LABS: Hemoglobin A1C 5.9 % (4.5-5.6)
[2025-07-24] MEDS: VALSARTAN 80 MG TAB PO SCH (08:58)
[2025-07-24 08:59] LABS: Anion Gap 9.0 (3-11); Blood Urea Nitrogen 16.0 mg/dl (6-23); Calcium 9.2 mg/dl (8.6-10.3); Carbon Dioxide 31.0 mmol/L (21-32); Chloride 101.0 mmol/L (98-107); Cholesterol 127.0 mg/dl (0-200); Creatinine Clr Calc Pharmacy 72.2 ml/min; Glucose 89.0 mg/dl (70-99(Fasting)); HDL Cholesterol 34.0 mg/dl; Potassium 3.4 mmol/L (3.5-5.1); Sodium 141.0 mmol/L (136-145); Triglycerides 224.0 mg/dl (0-150)
[2025-07-24] MEDS: ASPIRIN 81 MG ECTAB PO SCH (08:59)
[2025-07-24] MEDS: hydroCHLOROthiazide 25 MG TAB PO SCH (09:00)
[2025-07-24] MEDS ORDERED: ASPIRIN 81 MG ECTAB PO SCH (09:00)
[2025-07-24] MEDS ORDERED: VALSARTAN/HCTZ 160/12.5MG TAB PO SCH (09:00)
[2025-07-24] MEDS: CLOPIDOGREL BISULFATE 75 MG TAB PO SCH (09:01)
[2025-07-24] MEDS: TOCOPHERYL, DL-ALPHA 400 UNITS 180 MG CAP PO SCH (09:01)
[2025-07-24] MEDS: CALCIUM 600MG + VIT D 400 IU TAB PO SCH (09:01)
[2025-07-24] MEDS: PNEUMOCOCCAL VACCINE (PCV20) 20-VAL CONJ-DIP CRM/PF 0.5 ML SYR IM ONE (09:06)
--- NOTE | 2025-07-24 13:54 | Hospitalist Progress Note ---
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 Aspirin daily - Neurochecks per stroke protocol - Bedside swallow, heart healthy diet - No recurrence of symptoms since admission. Neurology consultation pending. Further Plavix dosing per neurology #Hypokalemia Quite significant, 2.8 on admission. Supplement and has almost normalized. Will provide an oral supplement and a daily supplement moving forward. Certainly fluctuations in hypokalemia could worsen his symptoms as noted above. Continue daily checks #Hypertensive urgency #Chronically elevated blood pressure #Hypertension -Chronically elevated per patient she states 160 would be a "good number" for her -Resume home antihypertensives -Could not rule out the fact that a watershed episode of hypotension could elicit stroke like symptoms as above making the episodes more episodic -Goal for 25% decrease in blood pressures over the first 24 hours, monitor for recurrence of symptoms #Chronic migraine - She is on prophylactic medication unclear which one that is. She states she still has the aura but has not had any headaches since she started this medication maybe 15 years ago - Complex migraine/ocular migraine certainly part of the differential as above - No recurrent over the first day of hospitalization #hyperlipidemia - Continue statin #Parkinsonism Continue current Sinemet dose- #Tobacco dependence - Longstanding, not counseled initially but encouraged strongly to stop #Chronic back pain - Poorly controlled in the outpatient setting. Patient states that it is difficult for her to manage her blood pressure and lieu of her chronic back pain. -Monitor for breakthrough #FEN - Heart healthy diet #CODE STATUS -Full code per her wishes Admission and Anticipated Discharge Date Admission Date: July 23, 2025 Subjective Doing okay this morning. No new or different symptoms no new acute concerns. She has been up and walking in the room. She has had no recurrence of the symptoms since admit. I reviewed the MRI results with her this morning. Potassium was 2.8 on admission has improved to 3.4 at this time. She has no known history of hypokalemia. Does not recall being told this was low previously. Neurology consult pending. Otherwise eating and drinking okay. No problems with bowel or bladder function. Physical Exam Physical Exam: GENERAL: NAD, conversational, joking with her sister at bedside at times. EYE EXAM: Normal conjunctiva. PERRL, no anisocoria OROPHARYNX: Moist mucus membranes, grossly normal dentition. LUNGS: Clear to auscultation. Normal WOB. HEART: RRR no MRG. SKIN: No rashes and no bruising. UPPER EXTREMITIES: Upper extremities are grossly normal. LOWER EXTREMITIES: Grossly normal, no edema. NEURO EXAM: No focal deficits, A&Ox3, follows commands, no obvious facial asymmetry, normal speech, moves all 4 extremities. Good [id number], no drift and no sensory deficits. Results & Data Results & Data Vital Signs (Past 12 Hours) Vital Signs Temp Pulse Pulse Resp BP BP Pulse Ox 07/24/25 12:02 36.8 C 51 L 18 180/84 H 93 07/24/25 10:00 47 L 07/24/25 08:15 36.8 C 50 L 18 158/75 H 94 07/24/25 04:00 36.9 C 65 18 144/67 H 93 O2 Del Method 07/24/25 12:02 Room Air 07/24/25 10:00 07/24/25 08:15 Room Air 07/24/25 04:00 Room Air Laboratory Results 07/24/25 07/24/25 07/24/25 12:47 07:04 01:02 WBC 8.25 RBC 4.44 Hgb 14.0 Hct 41.3 MCV 93.0 MCH 31.5 MCHC 33.9 RDW Std Deviation 47.9 H RDW Coeff of Fermin 14.2 Plt Count 180 MPV 11.5 Immature Gran % (Auto) 0.4 Neut % (Auto) 51.5 Lymph % (Auto) 38.9 [place] % (Auto) 7.6 Eos % (Auto) 1.2 Baso % (Auto) 0.4 Neut # (Auto) 4.25 Lymph # (Auto) 3.21 [place] # (Auto) 0.63 H Eos # (Auto) 0.10 Baso # (Auto) 0.03 Immature Gran # (Auto) 0.03 Sodium 141 Potassium 3.4 L D Chloride 101 Carbon Dioxide 31 Anion Gap 9 BUN 16 Creatinine 0.63 Est Cr Clr Drug Dosing 72.2 eGFR 92.45 BUN/Creatinine Ratio 25.4 H Glucose 89 POC Glucose Estimat Average Glucose 123 Hemoglobin A1c 5.9 H Calcium 9.2 Troponin I High Sens 8.7 9.6 10.1 Triglycerides 224 H Cholesterol 127 LDL Cholesterol, Calc 48 VLDL Cholesterol, Calc 45 H HDL Cholesterol 34 Cholesterol/HDL Ratio 3.7 07/23/25 13:56 WBC RBC Hgb Hct MCV MCH MCHC RDW Std Deviation RDW Coeff of Fermin Plt Count MPV Immature Gran % (Auto) Neut % (Auto) Lymph % (Auto) [place] % (Auto) Eos % (Auto) Baso % (Auto) Neut # (Auto) Lymph # (Auto) [place] # (Auto) Eos # (Auto) Baso # (Auto) Immature Gran # (Auto) Sodium Potassium Chloride Carbon Dioxide Anion Gap BUN Creatinine Est Cr Clr Drug Dosing eGFR BUN/Creatinine Ratio Glucose POC Glucose 84 Estimat Average Glucose Hemoglobin A1c Calcium Troponin I High Sens Triglycerides Cholesterol LDL Cholesterol, Calc VLDL Cholesterol, Calc HDL Cholesterol Cholesterol/HDL Ratio Diagnostic Findings Brain MRI 07/23/25 14:43 MR brain wo con HISTORY: 74 years-old Female stroke work up acute stroke like symptoms COMPARISON: CTA head same day TECHNIQUE: Multiplanar multisequence MRI of the brain was obtained without IV contrast FINDINGS: No restricted diffusion to suggest an acute or subacute infarct. There are chronic right cerebellar lacunar infarcts. Involutional changes with moderate T2/FLAIR hyperintense foci throughout the white matter. No acute intracranial hemorrhage, midline shift, abnormal extra-axial collection, hydrocephalus or intra-axial mass. Degenerative changes of the imaged cervical spine. Cerebral venous sinuses and major arterial flow voids appear patent. Skull, orbits and soft tissues are unremarkable. The mastoid air cells are clear. Mild mucosal thickening of the left sphenoid sinus. IMPRESSION: 1. No acute intracranial abnormality. No acute or subacute infarct. 2. Involutional changes with chronic microvascular ischemic disease. 3. Chronic right cerebellar lacunar infarcts. ACT 112: Negative or not required by law. The above report was generated using voice recognition software. It may contain grammatical, syntax or spelling errors. Electronically signed by: Fab Burns M.D. 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
[2025-07-24] MEDS: POTASSIUM CHLORIDE CRTAB 20 MEQ TABCR PO STA (13:58)
--- NOTE | 2025-07-24 16:09 | Neurology Consultation ---
Date of Consultation July 24, 2025 Assessment & Plan (1) Carotid stenosis: -Continue aspirin 81 mg daily indefinite -continue clopidogrel 75 mg daily for at least 90 days per [facility] protocol - patient was naive to clopidogrel prior to admission -continue rosuvastatin 40 mg daily indefinite - recommend outpatient Neurology follow up in 1 month after discharge -recommend outpatient Neurosurgery follow up in 1 month after discharge for consideration of carotid revascularization -smoking cessation was encouraged and counseling was provided (2) Vertigo: -recommend outpatient prescriptions for meclizine and ondansetron - PTOT cleared patient, no need for vertiginous therapies - recommend continue adequate hydration and no skipped meals - if patient's symptoms persist despite lifestyle modifications and symptomatic treatment, consider MRI brain with and without contrast with IAC protocol - I advised patient of slow movements especially prior to getting out of bed I discussed my recommendations with Dr. Cheyenne Gonzalez via Wendell text. Thank you for this consult. Please call with questions. Telehealth Consultation Telehealth Information Telehealth Information: I performed this visit using a real-time telehealth connection between my location and the patients originating location ([facility]). After connecting through interactive tele-video, patient was identified by name and date of and/or wristband check.Patient (or authorized healthcare claims customer service representative) was informed that this was a telemedicine visit and it was being conducted confidentially over secure lines. My office door was closed and no one else was present in the room with me.Patient (or authorized healthcare claims customer service representative) provided consent to proceed with the visit, expressed an understanding of privacy and security of the telemedicine visit, and gave permission to have a hospital claims customer service representative in the room in order to assist with the visit and to conduct portions of the visit, as needed. I informed the patient (or authorized healthcare claims customer service representative) that I reviewed their record and presented the opportunity for them to ask any questions regarding the visit today. The patient agreed to participate. History of Present Illness Reason for Consultation: Concern for TIA Attending Physician: Carlos Quinn MD History of Present Illness Cassie Bonilla is a 74-year-old female smoker (1 pack per day) with a past medical history of hypertension, restless legs syndrome, migraines, GERD, and vertigo who presented to [facility] on 07/23/2025 with right upper and lower extremity weakness and heaviness, whole mouth numbness, tongue numbness, double vision, nausea, and vertigo. The patient denied headache or language deficits. She says her symptoms have recurred for the past few months 1-2 times per week but now they are occurring 1-2 times per day. The patient reports adequate water intake and she does not skip meals. She states her symptoms are worse wit h movement. At present, she feels back to her baseline. NIHSS is 0. Allergies Allergy/AdvReac Type Severity Reaction Status Date / Time No Known Allergies Allergy Mild Verified 07/23/25 13:55 Home Medications Medication Instructions Recorded Confirmed Type aspirin 81 mg tablet,delayed 81 mg PO DAILY 03/09/20 07/23/25 History release (Aspir-) calcium 600 mg (as carbonate)-vit 1 tab PO QAM 03/09/20 07/23/25 History D3 20 mcg (800 unit) chewable tablet (Caltrate plus D) carbidopa 25 mg-levodopa 100 mg 1 tab PO HS 03/09/20 07/23/25 History tablet hydrochlorothiazide 12.5 mg tablet 0 mg PO QAM 03/09/20 07/23/25 History nadolol 40 mg tablet 40 mg PO HS 03/09/20 07/23/25 History omeprazole 20 mg capsule,delayed 20 mg PO QAM 03/09/20 07/23/25 History release valsartan 80 mg tablet 0 mg PO QAM 03/09/20 07/23/25 History vitamin E 268 mg (400 unit) capsule 400 unit PO QAM 03/09/20 07/23/25 History acetaminophen 500 mg tablet 500 mg PO Q6H PRN Pain 07/23/25 07/23/25 History loratadine 10 mg tablet 10 mg PO DAILY PRN Allergy Symptoms 07/23/25 07/23/25 History rosuvastatin 40 mg tablet 40 mg PO QPM 07/23/25 07/23/25 History valsartan 160 0 tab PO DAILY 07/23/25 07/23/25 History mg-hydrochlorothiazide 12.5 mg tablet Patient History Social History Smoking Status: Current every day smoker Tobacco Type: Cigarettes Second Hand Exposure: No; Do You Dip or Chew Tobacco: No; Tobacco Cessation Education Requested by Patient: No Hx Alcohol Use: No Hx Substance Use: No Preferred Language: Danish Communication Ability: Effective Environmental Compliance Engineer Required: No Beliefs That Will Affect Care: None marital status: Current Living Situation: Spouse current occupational status: retired Feels Safe at Home: Yes Safety Concerns: Feels Safe At This Time Assistive Devices: Glasses Review of Systems ROS reviewed and negative except as above. Physical Exam NIHSS is 0 Results & Data Vital Signs (Past 12 Hours) Vital Signs Temp Pulse Pulse Resp BP BP Pulse Ox 07/24/25 12:02 36.8 C 51 L 18 180/84 H 93 07/24/25 10:00 47 L 07/24/25 08:15 36.8 C 50 L 18 158/75 H 94 O2 Del Method 07/24/25 12:02 Room Air 07/24/25 10:00 07/24/25 08:15 Room Air Laboratory Results 07/24/25 07/24/25 07/24/25 12:47 07:04 01:02 WBC 8.25 RBC 4.44 Hgb 14.0 Hct 41.3 MCV 93.0 MCH 31.5 MCHC 33.9 RDW Std Deviation 47.9 H RDW Coeff of Fermin 14.2 Plt Count 180 MPV 11.5 Immature Gran % (Auto) 0.4 Neut % (Auto) 51.5 Lymph % (Auto) 38.9 [place] % (Auto) 7.6 Eos % (Auto) 1.2 Baso % (Auto) 0.4 Neut # (Auto) 4.25 Lymph # (Auto) 3.21 [place] # (Auto) 0.63 H Eos # (Auto) 0.10 Baso # (Auto) 0.03 Immature Gran # (Auto) 0.03 Sodium 141 Potassium 3.4 L D Chloride 101 Carbon Dioxide 31 Anion Gap 9 BUN 16 Creatinine 0.63 Est Cr Clr Drug Dosing 72.2 eGFR 92.45 BUN/Creatinine Ratio 25.4 H Glucose 89 Estimat Average Glucose 123 Hemoglobin A1c 5.9 H Calcium 9.2 Troponin I High Sens 8.7 9.6 10.1 Triglycerides 224 H Cholesterol 127 LDL Cholesterol, Calc 48 VLDL Cholesterol, Calc 45 H HDL Cholesterol 34 Cholesterol/HDL Ratio 3.7 Diagnostic Findings MRI brain without contrast 07/23/2025 Impression: 1. No acute intracranial abnormality. No acute or subacute infarct. 2. Involutional changes with chronic microvascular ischemic disease. 3. Chronic right cerebellar lacunar infarcts. CT angiogram head 07/23/2025 Impression: 1. There is no evidence of hemorrhage or mass effect noting angiographic phase technique. 2. Unremarkable CT angiogram of the brain. CT angiogram neck 07/23/2025 Impression: 1. Prominent atherosclerosis of the carotid bulbs with 60% stenosis of the proximal cervical segment right ICA. 2. 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 3. Pulmonary emphysema with upper lobe pulmonary nodules including a subsolid 2.2 cm nodule of the right upper lobe. Follow-up guidelines are listed below. Medications Administered Home Medications Medication Instructions Recorded Confirmed Last Taken aspirin 81 mg tablet,delayed 81 mg PO DAILY 03/09/20 07/23/25 03/09/20 release (Aspir-) calcium 600 mg (as carbonate)-vit 1 tab PO QAM 03/09/20 07/23/25 03/09/20 D3 20 mcg (800 unit) chewable tablet (Caltrate plus D) carbidopa 25 mg-levodopa 100 mg 1 tab PO HS 03/09/20 07/23/25 03/08/20 tablet hydrochlorothiazide 12.5 mg tablet 0 mg PO QAM 03/09/20 07/23/25 03/09/20 nadolol 40 mg tablet 40 mg PO HS 03/09/20 07/23/25 03/09/20 omeprazole 20 mg capsule,delayed 20 mg PO QAM 03/09/20 07/23/25 03/09/20 release valsartan 80 mg tablet 0 mg PO QAM 03/09/20 07/23/25 03/09/20 vitamin E 268 mg (400 unit) capsule 400 unit PO QAM 03/09/20 07/23/25 03/09/20 acetaminophen 500 mg tablet 500 mg PO Q6H PRN Pain 07/23/25 07/23/25 Unknown loratadine 10 mg tablet 10 mg PO DAILY PRN Allergy Symptoms 07/23/25 07/23/25 Unknown rosuvastatin 40 mg tablet 40 mg PO QPM 07/23/25 07/23/25 Unknown valsartan 160 0 tab PO DAILY 07/23/25 07/23/25 Unknown mg-hydrochlorothiazide 12.5 mg tablet Active Medications Generic Name Dose Route Start Last Admin Trade Name Freq PRN Reason Stop Dose Admin Calcium/Vitamin D 1 tab 07/24/25 09:00 07/24/25 09:01 Calcium 600mg + Vit D 400 Iu Tab PO 08/23/25 08:59 1 tab QAM MIKE Administration Carbidopa/Levodopa 1 tab 07/23/25 21:00 07/23/25 20:36 Carbidopa/Levodopa 25/100mg Tab PO 08/22/25 20:59 1 tab HS MIKE Administration Clopidogrel Bisulfate 75 mg 07/24/25 09:00 07/24/25 09:01 Clopidogrel Bisulfate 75 Mg Tab PO 08/23/25 08:59 75 mg QAM MIKE Administration Heparin Sodium (Porcine) 5,000 units 07/23/25 21:00 07/24/25 09:06 Heparin Sod 5,000 Unit/0.5 Ml Vial SQ 08/22/25 20:59 5,000 units Q12 MIKE Administration Hydrochlorothiazide 12.5 mg 07/24/25 09:00 07/24/25 09:00 Hydrochlorothiazide 25 Mg Tab PO 08/23/25 08:59 12.5 mg QAM MIKE Administration Nadolol 40 mg 07/23/25 21:00 07/23/25 20:36 Nadolol 40 Mg Tab PO 08/22/25 20:59 40 mg HS MIKE Administration Pantoprazole Sodium 40 mg 07/24/25 09:00 07/24/25 09:01 Pantoprazole 40 Mg Tab PO 08/23/25 08:59 40 mg QAM MIKE Administration Rosuvastatin Calcium 40 mg 07/23/25 21:00 07/23/25 20:36 Rosuvastatin Calcium 20 Mg Tab PO 08/22/25 20:59 40 mg QPM MIKE Administration Valsartan 200 mg 07/24/25 09:00 07/24/25 08:58 Valsartan 80 Mg Tab PO 08/23/25 08:59 200 mg QAM MIKE Administration Vitamin E 180 mg 07/24/25 09:00 07/24/25 09:01 Tocopheryl, Dl-Alpha 400 Units 180 Mg Cap PO 08/23/25 08:59 180 mg QAM MIKE Administration
[2025-07-24] MEDS ORDERED: hydrALAZINE 10 MG TAB PO PRN (17:51)
[2025-07-25 03:56] VITALS: TEMP 98.1; O2SAT 93
[2025-07-25 07:17] LABS: Hematocrit (blood only) 39.7 % (37.0-47.0); Hemoglobin 13.4 g/dL (12.0-16.0); Immature Granulocytes # (auto) 0.01 K/uL (0.01-0.20); Immature Granulocytes % (auto) 0.1 %; Mean Corpuscular Hemoglobin 31.8 pg (25.0-34.0); Mean Corpuscular Volume 94.3 fL (80.0-100.0); Platelet Count 152 K/uL (130-400); RDW Standard Deviation 47.7 fL (36.4-46.3); Red Blood Count 4.21 M/uL (4.20-5.40); White Blood Count 7.13 K/ul (4.8-10.8)
[2025-07-25 07:54] VITALS: PULSE 52; RESP 16
[2025-07-25 07:58] LABS: Anion Gap 10.0 (3-11); Blood Urea Nitrogen 19.0 mg/dl (6-23); Calcium 9.0 mg/dl (8.6-10.3); Carbon Dioxide 29.0 mmol/L (21-32); Chloride 102.0 mmol/L (98-107); Creatinine Clr Calc Pharmacy 71.1 ml/min; Glucose 86.0 mg/dl (70-99(Fasting)); Magnesium 1.9 mg/dl (1.7-2.4); Potassium 3.5 mmol/L (3.5-5.1); Sodium 141.0 mmol/L (136-145)
[2025-07-25] MEDS: ASPIRIN 81 MG ECTAB PO SCH (08:45)
[2025-07-25] MEDS: POTASSIUM CHLORIDE CRTAB 20 MEQ TABCR PO SCH (09:01)
[2025-07-25] MEDS ORDERED: STROKE PATIENT DISCHARGE STA (12:03)
--- NOTE | 2025-07-25 12:11 | Discharge Summary ---
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: (5) Stroke-like symptom: (6) Hypertension: (7) Tobacco dependence: (8) Chronic back pain: Plan #Strokelike symptoms #Carotid Stenosis - Moderate chronic microvascular changes and lacunar infarcts noted on MRI, secondary prevention strongly encouraged - Started on ASA and Plavix, follow-up with neurology in 1 month for recheck #Vertigo -See neruo consult, meclizine and zofran PRN, resolved with no recurrence during this stay #Hypokalemia -Symptoms resolved with repletion,2.8 on admission, DC with daily supplement recheck BMP and mag in o/p setting in 1-2 weeks #Hypertensive urgency #Chronically elevated blood pressure #Hypertension -Chronically elevated per patient she states 160 would be a "good number" for her -Resume home antihypertensives -Could not rule out the fact that a watershed episode of hypotension could elicit stroke like symptoms as above making the episodes more episodic -Goal for 25% decrease in blood pressures over the first 24 hours, monitor for recurrence of symptoms -aggressive mgmt in o/p setting given MRI findings SBP 140-160 during stay #Chronic migraine - She is on prophylactic medication unclear which one that is. She states she still has the aura but has not had any headaches since she started this medicati on maybe 15 years ago - Complex migraine/ocular migraine certainly part of the differential as above - No recurrent over the first day of hospitalization #hyperlipidemia - Continue statin #Parkinsonism Continue current Sinemet dose- #Tobacco dependence - Longstanding, not counseled initially but encouraged strongly to stop -Strongly urged cessation #Chronic back pain - Poorly controlled in the outpatient setting. Patient states that it is difficult for her to manage her blood pressure and lieu of her chronic back pain. -Monitor for breakthrough Discharge Exam GENERAL: NAD, conversational, joking with her sister at bedside at times. EYE EXAM: Normal conjunctiva. PERRL, no anisocoria OROPHARYNX: Moist mucus membranes, grossly normal dentition. LUNGS: Clear to auscultation. Normal WOB. HEART: RRR no MRG. SKIN: No rashes and no bruising. UPPER EXTREMITIES: Upper extremities are grossly normal. LOWER EXTREMITIES: Grossly normal, no edema. NEURO EXAM: No focal deficits, A&Ox3, follows commands, no obvious facial asymmetry, normal speech, moves all 4 extremities. Good [id number], no drift and no sensory deficits. Discharge Plan Discharge Items Patient Disposition: Home - Self-Care Reason For Visit: STROKE LIKE SYMPTOMS Discharge Diagnosis: Vertigo, Carotid Stenosis Condition on Discharge: Good Health Concerns: -Take 1/2 to 1 tablet of the meclizine as needed for dizziness, you can also take this to prevent episodes if it does not cause too much tiredness/fatigue -Take the aspirin and plavix daily -Use the zofran as needed for nausea -Follow up in the primary clinic in 5-7 days for recheck of magnesium and potassium, BP medication management and to review tobacco cessation options -Follow-up with neurology in 2-4 weeks for recheck -If your home BP reading are consistently above 160 then follow-up in the clinic FRAN Activity: Resume your previous activity Non-emergency contact: Primary Care Provider and Neurologist Call non-emergency contact if: you have any medication questions, your symptoms worsen and you have a fever Follow-up/Referrals: Jaqueline Reardon PA-C [Primary Care Provider] - Diet: Heart Healthy Addtl Attending Provider Instructions: Recheck Potassium and Magnesium Levels Pending Studies at Discharge: No Stand-Alone Forms: My [facility] [employer], Smoking Cessation Medications and DC Order Prescriptions: New clopidogrel 75 mg Tablet 75 mg PO QAM Qty: 30 0RF potassium chloride 20 mEq Tablet,Er Particles/Crystals 20 meq PO QAM Qty: 30 0RF meclizine 25 mg tablet 25 mg PO QID PRN (Reason: dizziness) Qty: 30 0RF ondansetron 4 mg tablet,disintegrating 4 mg PO Q6H PRN (Reason: nausea and vomiting) Qty: 14 0RF Continued valsartan 80 mg tablet 0 mg PO QAM Patient Comments: 07/23- per patient, she isn't really sure which ones she takes. She knows she definitely takes the combination khris/hctz and thinks she also takes the valsartan 80mg by itself as well which she thinks is too much and is causing her issues. aspirin [Aspir-81] 81 mg Tablet,Delayed Release (Dr/Ec) 81 mg PO DAILY omeprazole 20 mg capsule,delayed release(DR/EC) 20 mg PO QAM nadolol 40 mg tablet 40 mg PO HS carbidopa-levodopa 25-100 mg tablet 1 tab PO HS vitamin E 400 unit Capsule 400 unit PO QAM hydrochlorothiazide 12.5 mg tablet 0 mg PO QAM Patient Comments: 07/23- per patient, she isn't really sure which ones she takes. She knows she definitely takes the combination khris/hctz and thinks she also takes the valsartan 80mg by itself as well which she thinks is too much and is causing her issues. Caltrate 600 plus D 600 mg (1,500 mg)-800 unit Tablet,Chewable 1 tab PO QAM valsartan-hydrochlorothiazide 160-12.5 mg tablet 0 tab PO DAILY Patient Comments: 07/23- per patient, she isn't really sure which ones she takes. She knows she definitely takes the combination khris/hctz and thinks she also takes the valsartan 80mg by itself as well which she thinks is too much and is causing her issues. rosuvastatin 40 mg tablet 40 mg PO QPM acetaminophen 500 mg Tablet 500 mg PO Q6H PRN (Reason: Pain) loratadine 10 mg Tablet 10 mg PO DAILY PRN (Reason: Allergy Symptoms) Discharge Orders: Discharge Order (Routine); Ordered 07/25/25 Ordered By: Carlos Ni/Other Patient Handouts: Clopidogrel Oral Tablet, Vertigo Medicine Tx, Vertigo Staying Safe Admission Data Admit Date/Time: 07/23/25 17:04 Attending Provider: Carlos Quinn Admit Provider: Carlos Quinn Primary Care Provider: Jaqueline Reardon Other Providers: Carlos Quinn; Sheri Guzmán; Omari Morrow; Sheri Raza; Albert Carpenter; Kang Robles; Dima Tovar; Mike Cornell; Chloé Turner; Dorian Nava; Lauri Degroot; Opal Butts; Alen Khalil; Maria Del Rosario Ramirez; Mike Smith; Marlen Pike; Ashtyn Barrientos; Marleny Santana Hospital Stay Data Consultations 07/23/25 14:42 ED Decision to Admit Stat 07/23/25 18:30 Consult Neurology Routine Diagnostic Imagining Performed 07/23/25 11:12 CT angio head w con Stat CT angio neck with con Stat CT head/brain wo con Stat 07/23/25 14:43 MR brain wo con Routine Pending Results Patient Have Any Pending Studies at Discharge: No Discharge Instructions Given to Patient (Per Discharging Provider) Recheck Potassium and Magnesium Levels Total Time Total Time Spent Total Time Spent (In Minutes): 25 minutes spent at the bedside discussing results and modifications to care plan with patient. Arrangements for prescription on discharge. 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
[2025-07-25 12:19] VITALS: BP 161/73
--- NOTE | 2025-07-28 07:07 | Electrocardiogram Report ---
Test Reason : Blood Pressure : */* mmHG Vent. Rate : 52 BPM Atrial Rate : 52 BPM P-R Int : 100 ms QRS Dur : 94 ms QT Int : 492 ms P-R-T Axes : 45 9 33 degrees QTcB Int : 457 ms Sinus bradycardia with short VT Otherwise normal ECG When compared with ECG of 23-Jul-2025 10:39, (unconfirmed) No significant change was found Confirmed by Adis Bejarano ([id number]) on 07/28/2025 7:06:56 AM Referred By: Jaqueline Reardon Confirmed By: Adis Bejarano
--- NOTE | 2025-07-28 07:26 | Electrocardiogram Report ---
Test Reason : Blood Pressure : */* mmHG Vent. Rate : 61 BPM Atrial Rate : 61 BPM P-R Int : 118 ms QRS Dur : 96 ms QT Int : 444 ms P-R-T Axes : 39 17 56 degrees QTcB Int : 446 ms Normal sinus rhythm with sinus arrhythmia Normal ECG When compared with ECG of 01-Oct-2010 11:48, HR has increased Confirmed by Adis Bejarano ([id number]) on 07/28/2025 7:26:36 AM Referred By: Jaqueline Reardon Confirmed By: Adis Bejarano
== END 2025-07-25 12:45 | disposition home or self-care (01) ==
LOC: ED 10:22 → 2W 17:04 → INTOOBSV 17:04 → 2W 18:14